=== PATIENT | male | born 1990 | race Caucasian/White ===

== ENCOUNTER 2024-05-18 15:47 | Emergency (ER) | payer BC, OTHER ==
[2024-05-18] MEDS ORDERED: Ketorolac Tromethamine 30 MG (1 mL) VIAL ONE (17:36)
[2024-05-18] MEDS ORDERED: Morphine 4 MG/ML VIAL ONE (19:32)
[2024-05-18] MEDS ORDERED: Ondansetron ODT 4 MG TAB ONE (19:32)
== END 2024-05-18 19:52 | disposition short-term general hospital (02) ==
LOC: ERS 15:47 → EEVIPCON 15:47 → ERS 19:52
DX: S02.2XXA Fracture of nasal bones, initial encounter for closed fracture (principal); S02.32XA Fracture of orbital floor, left side, initial encounter for closed fracture; S02.40DA Maxillary fracture, left side, initial encounter for closed fracture; F17.210 Nicotine dependence, cigarettes, uncomplicated; Y04.2XXA Assault by strike against or bumped into by another person, initial encounter
CPT/HCPCS: 70486; 96372; J1885; J2272; Q0162